=== PATIENT | female | born 1985 | race Caucasian/White ===

== ENCOUNTER → 2023-08-29 | Outpatient (CLI) | payer BC, SELFPAY ==
--- NOTE | 2023-08-29 18:34 | US_ITS ---
INDICATION: UTI EXAMINATION: Ultrasound US Kidney(s) complete (eg, kidneys and bladder) TECHNIQUE: Nathan scale and color doppler images were obtained of the kidneys. COMPARISON: No relevant prior comparison study available FINDINGS: RIGHT KIDNEY: 11.3 x 4.3 x 3.1 cm. There is no hydronephrosis. No shadowing calculus, focal lesion or perinephric collection is demonstrated. LEFT KIDNEY: 11.6 x 4.3 x 5.4 cm.. There is no hydronephrosis. No urinary calculi. Indeterminate 2.6 x 2.5 x 1.8 cm hypodense structure in the upper pole of left kidney. URINARY BLADDER: No acute abnormality. Bladder volume 66 mL. Negligible post void residual. Ureteral jets not identified. No significant bladder wall thickening. US/Kidney and Bladder IMPRESSION: * No hydronephrosis or urinary calculi. * Indeterminant 2.6 cm hypodense structure in the upper pole of left kidney. This may represent a cyst, however it is unclear based upon images submitted for review. Consider nonemergent MRI of the kidneys for further evaluation Electronically Signed: Luis Enrique Giraldo MD at 20:47 EST ,
== END | disposition home or self-care (01) ==
LOC: US 18:34
PROVIDERS: Visit Provider Urology
DX: N39.0 Urinary tract infection, site not specified (principal)
CPT/HCPCS: 76770

== ENCOUNTER → 2023-09-14 | Outpatient (CLI) | payer BC, SELFPAY ==
--- NOTE | 2023-09-14 18:57 | CT_ITS ---
EXAM: CT abdomen and pelvis with and without contrast. HISTORY: Cyst versus solid mass in the left kidney. TECHNIQUE: CT Abdomen And Pelvis WO/W Contrast Injection. Images were obtained pre and postcontrast. Postcontrast images were obtained in the portal venous and delayed phases. A radiation dose optimization technique was used for this scan. COMPARISON: Renal ultrasound August 29, 2023. LIMITATIONS: None. LOWER CHEST: Normal. LIVER: Normal. GALLBLADDER: Normal. BILE DUCTS: Normal. PANCREAS: Normal. SPLEEN: Normal. ADRENAL GLANDS: Normal. KIDNEYS/URETERS/BLADDER: No renal cyst identified bilaterally. No solid renal mass in the left kidney, specifically the upper pole at the area in question on the prior ultrasound. No solid mass within the right kidney. No renal stones. No hydronephrosis. AORTA: Normal caliber. BOWEL/MESENTERY: Normal. APPENDIX: Normal. PERITONEUM: Trace free pelvic fluid. REPRODUCTIVE ORGANS: Normal. BONES/SOFT TISSUES: No acute fracture. OTHER: None. CONCLUSION: No solid mass or suspicious lesion in the left kidney. No significant abnormality. Electronically Signed: Chaparro David MD at 21:09 EST , CT/CT Abd/Pelvis W/WO Contrast IMPRESSION: undefined
== END | disposition home or self-care (01) ==
LOC: CT 18:55
PROVIDERS: Referring Provider Urology; Visit Provider Urology
DX: R93.49 Abnormal radiologic findings on diagnostic imaging of other urinary organs (principal); N34.0 Urethral abscess; R10.9 Unspecified abdominal pain
CPT/HCPCS: 74178; Q9967; A4216